=== PATIENT | male | born 1970 | race Hispanic/Latino ===

== ENCOUNTER 2016-12-17 11:43 | Inpatient (IN) | payer OTHER ==
[2016-12-17] MEDS ORDERED: Sodium Chloride 0.9% 1,000 ML IV ONE (12:21)
[2016-12-17] MEDS ORDERED: Pantoprazole 80 MG in Sodium Chloride 0.9% 100 ML IV STA (12:21)
--- NOTE | 2016-12-17 12:21 | C.PDOC ---
History Of Present Illness 46 y/o male presents to ED with c/o rectal bleeding. Patient reports he had a colonoscopy performed recently, which showed large internal hemorrhoids. Patient reports worsening rectal bleeding over last few days with some associated lightheadedness and dizziness. Denies fever, chills, nausea, vomiting. Time Seen by Provider: 12/17/16 12:21 Chief Complaint (Nursing): GI Problem History Per: Patient History/Exam Limitations: no limitations Current Symptoms Are (Timing): Still Present Number Of Bleeding Episodes: Multiple: Pain Scale Rating Of: 0 Quality Of Discomfort: denies: "Pain" Associated Symptoms: Lightheadedness. denies: Nausea, Vomiting, Diarrhea Recent travel outside of the [place]: No Past Medical History Reviewed: Historical Data, Nursing Documentation, Vital Signs Vital Signs: Last Vital Signs Temp 98.6 F 12/17/16 13:20 Pulse 67 12/17/16 13:20 Resp 20 12/17/16 13:20 BP 118/66 12/17/16 13:20 Pulse Ox 97 12/17/16 13:20 - Medical History PMH: Hypercholesterolemia - [facility] Procedures CLOSED ENDOSCOPIC BIOPSY OF LARGE INTESTINE (07/25/14) Family History: States: Unknown Family Hx - Social History Hx Alcohol Use: No Hx Substance Use: No - Immunization History Hx Tetanus Toxoid Vaccination: No Hx Influenza Vaccination: No Hx Pneumococcal Vaccination: No Review Of Systems Constitutional: Negative for: Fever, Chills Cardiovascular: Positive for: Light Headedness. Negative for: Chest Pain, Palpitations Respiratory: Negative for: Shortness of Breath Gastrointestinal: Positive for: Hematochezia. Negative for: Nausea, Vomiting Musculoskeletal: Negative for: Back Pain Skin: Negative for: Rash Neurological: Positive for: Dizziness. Negative for: Weakness Psych: Negative for: Anxiety Physical Exam - Physical Exam Appears: Non-toxic, No Acute Distress Skin: Warm, Dry, Pale Head: Normacephalic Eye(s): bilateral: Normal Inspection, PERRL, EOMI Neck: Supple Chest: Symmetrical Cardiovascular: Rhythm Regular Respiratory: Normal Breath Sounds, No Rales, No Rhonchi, No Wheezing Gastrointestinal/Abdominal: Soft, No Tenderness, No Guarding, No Rebound Rectal: Other (no evidence of active bleeding, (+) bright red blood) Back: No CVA Tenderness Extremity: Normal ROM Extremity: Bilateral: Atraumatic, Normal ROM Pulses: Left Dorsalis Pedis: Normal, Right Dorsalis Pedis: Normal Neurological/Psych: Oriented x3, Normal Speech, Normal Cognition Gait: Steady ED Course And Treatment - Laboratory Results Result Diagrams: 12/17/16 12:42 12/17/16 12:42 O2 Sat by Pulse Oximetry: 100 (RA) Pulse Ox Interpretation: Normal Progress Note: EKG, CxR, labs, IVFs, Zofran, Protonix ordered. Disposition Discussed With Dr.: Abby Garcia Comment: accepted the pt on his service and took over the care at 2:25 PM Doctor Will See Patient In The: Hospital Counseled Patient/Family Regarding: Studies Performed, Diagnosis - Disposition Disposition: HOSPITALIZED Disposition Time: 12:21 Condition: FAIR Forms: [facility] (Slovak) - POA Present On Arrival: None - Clinical Impression Clinical Impression: Rectal bleeding, Severe anemia - Scribe Statement The provider has reviewed the documentation as recorded by the Scribe SM All medical record entries made by the Scribe were at my direction and personally dictated by me. I have reviewed the chart and agree that the record accurately reflects my personal performance of the history, physical exam, medical decision making, and the department course for this patient. I have also personally directed, reviewed, and agree with the discharge instructions and disposition. Decision To Admit - Pt Status Changed To: Hospital Disposition Of: Inpatient - Admit Certification Admit to Inpatient:: After my assessment, the patient will require hospitalization for at least two midnights. This is because of the severity of symptoms shown, intensity of services needed, and/or the medical risk in this patient being treated as an outpatient. - InPatient: Physician Admission Certification: I certify that this patient requires 2 or more midnights of care for the following reason:: After my assessment, the patient will require hospitalization for at least two midnights. This is because of the severity of symptoms shown, intensity of services needed, and/or the medical risk in this patient being treated as an outpatient. - . Bed Request Type: Regular Admitting Physician: Abby Garcia Patient Diagnosis: Rectal bleeding, Severe anemia
[2016-12-17 12:46] LABS: BASO # 0.1 K/uL (0.0-0.2); BASO % 0.8 % (0.0-2.0); EOS # 0.3 K/uL (0.0-0.7); EOS % 4.8 % (0.0-4.0); HEMATOCRIT 25.3 % (35.0-51.0); LYMPH # 1.5 K/uL (1.0-4.3); LYMPH % 21.7 % (20.0-40.0); MEAN CORPUSCULAR HEMOGLOBIN 22.8 pg (27.0-31.0); MEAN CORPUSCULAR HGB CONC 31.3 g/dL (33.0-37.0); MEAN PLATELET VOLUME 7.1 fL (7.2-11.7); MONO # 0.5 K/uL (0.0-0.8); MONO % 7.3 % (0.0-10.0); RED CELL DISTRIBUTION WIDTH 16.1 % (11.5-14.5); WHITE BLOOD COUNT 7.1 K/uL (4.8-10.8)
[2016-12-17 12:54] LABS: CHLORIDE 103 mmol/L (98-107); POTASSIUM 4.4 mmol/L (3.6-5.2); SODIUM 136 mmol/L (132-148)
[2016-12-17] MEDS ORDERED: Sodium Chloride 0.9% 1,000 ML ONE (12:54)
[2016-12-17 12:56] LABS: ALB/GLOB RATIO 1.4 (1.0-2.1); AST/SGOT 33 U/L (17-59); BILIRUBIN,TOTAL 0.5 mg/dL (0.2-1.3); BLOOD UREA NITROGEN 16 mg/dL (9-20); CARBON DIOXIDE 25 mmol/L (22-30); GFR AFRICAN-AMERICAN > 60; TOTAL PROTEIN 6.8 g/dL (6.3-8.3)
[2016-12-17 12:57] LABS: ALKALINE PHOSPHATASE 62 U/L (38-126); ALT/SGPT 57 U/L (21-72); CALCIUM 8.5 mg/dl (8.6-10.4); GLUCOSE,RANDOM 105 mg/dL (75-110)
--- NOTE | 2016-12-17 13:07 | RAD ---
HISTORY: GI Bleeding COMPARISON: None available. TECHNIQUE: Chest, one view. FINDINGS: LUNGS: Mild left basilar atelectasis. No focal consolidation. Please note that chest x-ray has limited sensitivity for the detection of pulmonary masses. PLEURA: No significant pleural effusion identified. No definite pneumothorax . CARDIOVASCULAR: Heart size appears within normal limits. OSSEOUS STRUCTURES: Degenerative changes of the spine. VISUALIZED UPPER ABDOMEN: Mild elevation of the right hemidiaphragm. OTHER FINDINGS: None. IMPRESSION: Mild left basilar atelectasis.
[2016-12-17 14:39] LABS: URINE BILIRUBIN NEGATIVE (NEGATIVE); URINE BLOOD NEGATIVE (NEGATIVE); URINE COLOR Yellow (YELLOW); URINE GLUCOSE (UA) NORMAL (Normal); URINE KETONE NEGATIVE (NEGATIVE); URINE LEUKOCYTE ESTERASE NEG Leu/uL (Negative); URINE PROTEIN NEGATIVE (NEGATIVE); URINE UROBILINOGEN NORMAL mg/dL (0.2-1.0); WBC URINE < 1 /hpf (0-5)
[2016-12-17] MEDS ORDERED: Pneumococcal 23-Valent Vaccine SC ONE (20:36)
[2016-12-17] MEDS ORDERED: Pantoprazole 80 MG in Sodium Chloride 0.9% 100 ML IVP SCH (22:00)
[2016-12-17 22:39] LABS: HEMATOCRIT 25.8 % (35.0-51.0)
[2016-12-18] MEDS: Pantoprazole 80 MG in Sodium Chloride 0.9% 100 ML IVPB SCH ×3 (00:30→22:16)
[2016-12-18] MEDS: Dextrose 5%/0.45% NS 1,000 ML IV SCH ×4 (02:00→22:17)
--- NOTE | 2016-12-18 09:12 | CP.PCM.CON ---
History of Present Illness - History of Present Illness History of Present Illness: I was called 9 pm last night. Consult for R bleeding. Pt reports 2 years of rectal bleeding- episodes of BRBPR on and off. HAs been worse over few weeks- went to [facility] 3 weeks ago, and was discharged from ER. Pt had EGD few months ago- negative. Had 2 colonosocpies- last one was 2 months ago- only internal hemorrhoids seen. Reports sl weakness x 2 weeks. Reports Hb was 9.5. Review of Systems - Constitutional Constitutional: Fatigue, Weakness. absent: Anorexia, Weight Gain, Weight Loss - EENT Eyes: absent: Photophobia - Cardiovascular Cardiovascular: absent: Chest Pain, Dyspnea - Respiratory Respiratory: absent: Hemoptysis, Wheezing - Gastrointestinal Gastrointestinal: Hematochezia. absent: Abdominal Pain, Belching, Constipation , Diarrhea, Hematemesis, Melena, Nausea, Vomiting - Genitourinary Genitourinary: absent: Flank Pain, Hematuria - Musculoskeletal Musculoskeletal: absent: Deformity, Muscle Cramps, Muscle Weakness - Integumentary Integumentary: absent: Rash, Jaundice - Neurological Neurological: absent: Convulsions - Psychiatric Psychiatric: absent: Hallucinations Past Patient History - Past Medical History & Family History Past Medical History?: Yes - Past Social History Smoking Status: Never Smoked - CARDIAC Hx Cardiac Disorders: Yes Hx Hypercholesterolemia: Yes - PULMONARY Hx Respiratory Disorders: No - NEUROLOGICAL Hx Neurological Disorder: No - HEENT Hx HEENT Problems: No - RENAL Hx Chronic Kidney Disease: No - ENDOCRINE/METABOLIC Hx Endocrine Disorders: No - HEMATOLOGICAL/ONCOLOGICAL Hx Blood Disorders: No - INTEGUMENTARY Hx Dermatological Problems: No - MUSCULOSKELETAL/RHEUMATOLOGICAL Hx Falls: No - GASTROINTESTINAL Hx Gastrointestinal Disorders: Yes (BLOODY STOOLS) Hx Hemorrhoids: Yes - GENITOURINARY/GYNECOLOGICAL Hx 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) - PSYCHIATRIC Hx Substance Use: No - SURGICAL HISTORY Hx Surgeries: No - ANESTHESIA Hx Anesthesia: Yes Hx Anesthesia Reactions: No Hx Malignant Hyperthermia: No Has any member of the family had a problem w/ anesthesia?: No Meds Allergies/Adverse Reactions: Allergies Allergy/AdvReac Type Severity Reaction Status Date / Time No Known Allergies Allergy Verified 12/17/16 11:50 - Medications Medications: Current Medications Dextrose/Sodium Chloride (Dextrose 5%/0.45% Ns 1000 Ml) 1,000 mls @ 125 mls/hr IV .Q8H MARY ALICE Last Admin: 12/18/16 05:59 Dose: 125 mls/hr Pantoprazole Sodium 80 mg/ (Sodium Chloride) 100 mls @ 10 mls/hr IVPB .Q10H MARY ALICE PRN Reason: 8 MG/HR Last Admin: 12/18/16 00:30 Dose: 10 mls/hr Pneumococcal Polyvalent Vaccine (Pneumovax 23 Vaccine) 0.5 ml IM .ONCE ONE Stop: 12/19/16 10:01 Physical Exam - Constitutional Appears: Well - Neck Exam Neck exam: Negative for: Tenderness - Respiratory Exam Respiratory Exam: Clear to Auscultation Bilateral - Cardiovascular Exam Cardiovascular Exam: RRR - GI/Abdominal Exam GI & Abdominal Exam: Normal Bowel Sounds, Soft. absent: Distended, Guarding, Tenderness - Rectal Exam Rectal Exam: NORMAL INSPECTION. absent: Black Stool, Bloody Stool, Fecal Impaction Additional comments: g pos - Neurological Exam Neurological exam: Alert, Oriented x3 Results - Vital Signs Recent Vital Signs: Last Vital Signs Temp 98.1 F 12/18/16 08:11 Pulse 62 12/18/16 08:11 Resp 20 12/18/16 08:11 BP 105/58 L 12/18/16 08:11 Pulse Ox 95 12/18/16 08:11 - Labs Result Diagrams: 12/17/16 22:34 12/17/16 12:42 Labs: Laboratory Results - last 24 hr 12/17/16 12/17/16 12/17/16 12:31 12:42 12:42 WBC 7.1 RBC 3.47 L Hgb 7.9 L Hct 25.3 L MCV 73.0 L MCH 22.8 L MCHC 31.3 L RDW 16.1 H Plt Count 369 MPV 7.1 L Neut % (Auto) 65.4 Lymph % (Auto) 21.7 Alger % (Auto) 7.3 Eos % (Auto) 4.8 H Baso % (Auto) 0.8 Neut # 4.6 Lymph # 1.5 Alger # 0.5 Eos # 0.3 Baso # 0.1 PT 11.4 INR 1.0 APTT 26 Sodium Potassium Chloride Carbon Dioxide Anion Gap BUN Creatinine Est GFR ( Amer) Est GFR (Non-Af Amer) Random Glucose Calcium Total Bilirubin AST ALT Alkaline Phosphatase Total Protein Albumin Globulin Albumin/Globulin Ratio Urine Color Urine Clarity Urine pH Ur Specific [place] Urine Protein Urine Glucose (UA) Urine Ketones Urine Blood Urine Nitrate Urine Bilirubin Urine Urobilinogen Ur Leukocyte Esterase Urine WBC (Auto) Stool Occult Blood Negative Blood Type Antibody Screen 12/17/16 12/17/16 12/17/16 12:42 12:42 14:34 WBC RBC Hgb Hct MCV MCH MCHC RDW Plt Count MPV Neut % (Auto) Lymph % (Auto) Alger % (Auto) Eos % (Auto) Baso % (Auto) Neut # Lymph # Alger # Eos # Baso # PT INR APTT Sodium 136 Potassium 4.4 Chloride 103 Carbon Dioxide 25 Anion Gap 13 BUN 16 Creatinine 0.9 Est GFR ( Amer) > 60 Est GFR (Non-Af Amer) > 60 Random Glucose 105 Calcium 8.5 L Total Bilirubin 0.5 AST 33 ALT 57 Alkaline Phosphatase 62 Total Protein 6.8 Albumin 4.0 Globulin 2.9 Albumin/Globulin Ratio 1.4 Urine Color Yellow Urine Clarity Clear Urine pH 5.0 Ur Specific [place] 1.016 Urine Protein Negative Urine Glucose (UA) Normal Urine Ketones Negative Urine Blood Negative Urine Nitrate Negative Urine Bilirubin Negative Urine Urobilinogen Normal Ur Leukocyte Esterase Neg Urine WBC (Auto) < 1 Stool Occult Blood Blood Type O POSITIVE Antibody Screen Negative 12/17/16 12/17/16 15:03 22:34 WBC RBC Hgb 8.3 L Hct 25.8 L MCV MCH MCHC RDW Plt Count MPV Neut % (Auto) Lymph % (Auto) Alger % (Auto) Eos % (Auto) Baso % (Auto) Neut # Lymph # Alger # Eos # Baso # PT INR APTT Sodium Potassium Chloride Carbon Dioxide Anion Gap BUN Creatinine Est GFR ( Amer) Est GFR (Non-Af Amer) Random Glucose Calcium Total Bilirubin AST ALT Alkaline Phosphatase Total Protein Albumin Globulin Albumin/Globulin Ratio Urine Color Urine Clarity Urine pH Ur Specific [place] Urine Protein Urine Glucose (UA) Urine Ketones Urine Blood Urine Nitrate Urine Bilirubin Urine Urobilinogen Ur Leukocyte Esterase Urine WBC (Auto) Stool Occult Blood Blood Type O POSITIVE Antibody Screen Negative Assessment & Plan (1) Internal hemorrhoids Assessment and Plan: Seen at [facility] few months ago. Was NOT felt to be bleeding. Status: Acute (2) Rectal bleeding Assessment and Plan: Red blood. Only int hemorrhoids found on procedures. Consider hemorrhoids, AVM. Consider meckels, small bowel. Pt has appointment for capsule study in 1 week in [facility]. Consoder bleeding scan, meckels scan, capsule study, repeat colonosocpy. Check Hb. Consider surgical consult for hemorrhoids. Status: Acute (3) Severe anemia Assessment and Plan: From rectal bleeding. RED blood. Status: Acute
--- NOTE | 2016-12-18 11:55 | CP.PCM.PN ---
Subjective - Date & Time of Evaluation Date of Evaluation: 12/18/16 Time of Evaluation: 11:57 - Subjective Subjective: Patient seen and examined at bedside this AM; denies any acute complaints but states he is still bleeding into the toilet bowl when he tries to go to the bathroom. No other complaints. Objective - Vital Signs/Intake and Output Vital Signs (last 24 hours): Temp Pulse Resp BP Pulse Ox 98.1 F 62 20 105/58 L 95 12/18/16 08:11 12/18/16 08:11 12/18/16 08:11 12/18/16 08:11 12/18/16 08:11 Intake and Output: 12/18/16 12/18/16 06:59 18:59 Intake Total 1775 Balance 1775 - Medications Medications: Current Medications Heparin Sodium (Porcine) (Heparin Lock Flush) 50 units IVF ONCE MARY ALICE Dextrose/Sodium Chloride (Dextrose 5%/0.45% Ns 1000 Ml) 1,000 mls @ 125 mls/hr IV .Q8H MARY ALICE Last Admin: 12/18/16 05:59 Dose: 125 mls/hr Pantoprazole Sodium 80 mg/ (Sodium Chloride) 100 mls @ 10 mls/hr IVPB .Q10H MARY ALICE PRN Reason: 8 MG/HR Last Admin: 12/18/16 00:30 Dose: 10 mls/hr Pneumococcal Polyvalent Vaccine (Pneumovax 23 Vaccine) 0.5 ml IM .ONCE ONE Stop: 12/19/16 10:01 - Labs Labs: 12/17/16 22:34 12/17/16 12:42 PT 11.4 SECONDS (9.7-12.2) 12/17/16 12:42 INR 1.0 12/17/16 12:42 APTT 26 SECONDS (21-34) 12/17/16 12:42 - Constitutional Appears: Non-toxic - Head Exam Head Exam: ATRAUMATIC - Eye Exam Eye Exam: EOMI, PERRL. absent: Scleral icterus Pupil Exam: PERRL - ENT Exam ENT Exam: Mucous Membranes Moist - Neck Exam Neck Exam: Full ROM. absent: Lymphadenopathy - Respiratory Exam Respiratory Exam: Clear to Ausculation Bilateral, NORMAL BREATHING PATTERN - Cardiovascular Exam Cardiovascular Exam: REGULAR RHYTHM, +S1 - GI/Abdominal Exam GI & Abdominal Exam: Soft, Normal Bowel Sounds - Rectal Exam Rectal Exam: NORMAL INSPECTION (patient does not have blood visible at rectum however does have blood in toilet bowl ) - Extremities Exam Extremities Exam: Full ROM. absent: Calf Tenderness, Pedal Edema - Back Exam Back Exam: NORMAL INSPECTION. absent: CVA tenderness (L), CVA tenderness (R) - Neurological Exam Neurological Exam: Alert, Awake, CN II-XII Intact, Normal Gait, Oriented x3 - Psychiatric Exam Psychiatric exam: Normal Affect - Skin Skin Exam: Warm Assessment and Plan - Assessment and Plan (Free Text) Assessment: 46yo M admitted for GI Bleed GI Bleed; acute -patient had BRBPR for 3x; admits to weakness/ZAMORANO -patient transfused 1 unit PRBC, did not respond appropriately; 7.9 to 8.3; will give 1 more PRBC; BUN wnl -most recent colonscopy showed internal hemorrhoids -bleeding scan done today as per GI; Dr. Gallego; appreciate recs and f/u results -Protonix Drip; NPO; CBC Q12H as per Dr. Garcia; VSS otherwise; patient is ambulating around room without issue Proph -no anticoag for DVT as currently bleeding -protonix drip -NPO until GI clears All management as per Dr. Garcia
[2016-12-18] MEDS: Ferric Sodium Gluconat Complex 62.5 mg/5 ml Vial IVPB SCH (13:45)
[2016-12-18 14:00] LABS: HEMATOCRIT 26.3 % (35.0-51.0)
--- NOTE | 2016-12-18 14:33 | NM ---
PROCEDURE: Nuclear medicine gastrointestinal bleeding scan. HISTORY: rectal bleeding COMPARISON: None available. TECHNIQUE: 4 cc of patient blood was withdrawn and mixed with 21 mCi of technetium ultra tagged. Images of the abdomen and pelvis were obtained in the anterior and posterior projection at 1 min intervals over a period of 45 min. FINDINGS: No abnormal extravasation of tracer was observed throughout the exam to indicate active bleeding within or outside the gastrointestinal tract. Physiologic activity was seen in the heart, liver, spleen and blood vessels. IMPRESSION: No evidence of active gastrointestinal bleeding.
--- NOTE | 2016-12-18 18:39 | HP ---
HISTORY OF PRESENT ILLNESS: A 46-year-old male with complaint of bright red blood per rectum, anemia. The patient came to the hospital for admission. The patient states he had GI bleeding in the past. The patient had a colonoscopy around a few weeks back. He was found to have hemorrhoids. The patient came to the ER, advised admission. PHYSICAL EXAMINATION: GENERAL: The patient is awake, alert and oriented. VITAL SIGNS: Temperature 98, pulse 90. HEENT: Within normal limits. NECK: Supple. CHEST: Symmetrical. HEART: Regular. ABDOMEN: Soft. EXTREMITIES: No edema. LABORATORY DATA: Hemoglobin decreased at 0.6. IMPRESSION: The patient suffers from anemia, gastrointestinal bleeding. The patient on bedrest, supportive care, n.p.o., GI evaluation. Abby Garcia MD
[2016-12-18 21:49] LABS: HEMATOCRIT 25.5 % (35.0-51.0)
[2016-12-19] MEDS: Pantoprazole 80 MG in Sodium Chloride 0.9% 100 ML IVPB SCH ×3 (01:04→15:58)
[2016-12-19] MEDS: Dextrose 5%/0.45% NS 1,000 ML IV SCH ×5 (02:00→18:59)
[2016-12-19 02:31] VITALS: RESP 20
[2016-12-19 07:51] LABS: HEMATOCRIT 29.4 % (35.0-51.0); MEAN CELL VOLUME 74.1 fL (80.0-94.0); MEAN CORPUSCULAR HEMOGLOBIN 23.8 pg (27.0-31.0); MEAN CORPUSCULAR HGB CONC 32.2 g/dL (33.0-37.0); MEAN PLATELET VOLUME 7.2 fL (7.2-11.7); RED CELL DISTRIBUTION WIDTH 16.8 % (11.5-14.5); WHITE BLOOD COUNT 8.2 K/uL (4.8-10.8)
[2016-12-19] MEDS ORDERED: Influenza Vaccine 60 mcg/0.5 mL SYR (4YR UP) IM ONE (10:00)
[2016-12-19] MEDS ORDERED: Pneumococcal 23-Valent Vaccine IM ONE (10:00)
--- NOTE | 2016-12-19 10:37 | CP.PCM.PN ---
Subjective - Date & Time of Evaluation Date of Evaluation: 12/19/16 Time of Evaluation: 09:50 - Subjective Subjective: F/U R bleed. Reports less bleeding. Denies weakness, fever, CP, SOB, abdom pain, ZAMORANO, cough Objective - Vital Signs/Intake and Output Vital Signs (last 24 hours): Temp Pulse Resp BP Pulse Ox 98.2 F 62 20 119/77 95 12/19/16 08:00 12/19/16 08:00 12/19/16 08:00 12/19/16 08:00 12/19/16 08:00 Intake and Output: 12/19/16 12/19/16 06:59 18:59 Intake Total 1480 Balance 1480 - Medications Medications: Current Medications Docusate Sodium (Colace) 100 mg PO DAILY [facility] Last Admin: 12/18/16 14:00 Dose: 100 mg Ferric Sodium Gluconate Complex (Ferrlecit) 125 mg IVPB DAILY MARY ALICE Stop: 12/26/16 13:31 Last Admin: 12/18/16 13:45 Dose: 125 mg Heparin Sodium (Porcine) (Heparin Lock Flush) 50 units IVF ONCE MARY ALICE Dextrose/Sodium Chloride (Dextrose 5%/0.45% Ns 1000 Ml) 1,000 mls @ 125 mls/hr IV .Q8H MARY ALICE Last Admin: 12/19/16 02:24 Dose: 125 mls/hr Pantoprazole Sodium 80 mg/ (Sodium Chloride) 100 mls @ 10 mls/hr IVPB .Q10H MARY ALICE PRN Reason: 8 MG/HR Last Admin: 12/19/16 06:56 Dose: Not Given - Labs Labs: 12/19/16 07:43 12/17/16 12:42 PT 11.4 SECONDS (9.7-12.2) 12/17/16 12:42 INR 1.0 12/17/16 12:42 APTT 26 SECONDS (21-34) 12/17/16 12:42 - Constitutional Appears: Well - Respiratory Exam Respiratory Exam: Clear to Ausculation Bilateral - Cardiovascular Exam Cardiovascular Exam: RRR - GI/Abdominal Exam GI & Abdominal Exam: Soft, Normal Bowel Sounds. absent: Tenderness, Mass - Extremities Exam Extremities Exam: Normal Inspection - Neurological Exam Neurological Exam: Alert, Oriented x3 Assessment and Plan (1) Internal hemorrhoids Assessment & Plan: Not large on colonoscopy nor on my rectal exam yesterday. Status: Acute (2) Rectal bleeding Assessment & Plan: Unclear etiology. EGD done . Colonsocopy done x 2. Bleeding scan is negative. Unclear source of bleeding. Consider hemorrhoids- but were not large on exam. REC; Meckels scan, capsule study., check Hb. Status: Acute (3) Severe anemia Status: Acute
[2016-12-19] MEDS: Ferric Sodium Gluconat Complex 62.5 mg/5 ml Vial IVPB SCH (11:36)
[2016-12-19 14:18] LABS: HEMATOCRIT 29.4 % (35.0-51.0)
[2016-12-20] MEDS: Pantoprazole 80 MG in Sodium Chloride 0.9% 100 ML IVPB SCH ×2 (02:14→20:57)
[2016-12-20] MEDS: Dextrose 5%/0.45% NS 1,000 ML IV SCH ×4 (02:15→20:58)
[2016-12-20 08:19] LABS: HEMATOCRIT 30.2 % (35.0-51.0); MEAN CELL VOLUME 74.4 fL (80.0-94.0); MEAN CORPUSCULAR HEMOGLOBIN 23.8 pg (27.0-31.0); MEAN PLATELET VOLUME 7.6 fL (7.2-11.7); RED CELL DISTRIBUTION WIDTH 17.3 % (11.5-14.5); WHITE BLOOD COUNT 9.9 K/uL (4.8-10.8)
[2016-12-20] MEDS: Ferric Sodium Gluconat Complex 62.5 mg/5 ml Vial IVPB SCH (09:03)
--- NOTE | 2016-12-20 10:27 | CP.PCM.PN ---
Subjective - Date & Time of Evaluation Date of Evaluation: 12/20/16 Time of Evaluation: 10:10 - Subjective Subjective: F/u R bleeding. Reports less bleeding. No BM Denies fever, chills, Sz, CP, SOB, ZAMORANO, cough hematuria, hemoptysis Objective - Vital Signs/Intake and Output Vital Signs (last 24 hours): Temp Pulse Resp BP Pulse Ox 98.1 F 65 20 134/80 96 12/19/16 23:37 12/19/16 23:37 12/19/16 23:37 12/19/16 23:37 12/19/16 23:37 Intake and Output: 12/20/16 12/20/16 06:59 18:59 Intake Total 3000 Balance 3000 - Medications Medications: Current Medications Docusate Sodium (Colace) 100 mg PO DAILY [facility] Last Admin: 12/20/16 09:03 Dose: 100 mg Ferric Sodium Gluconate Complex (Ferrlecit) 125 mg IVPB DAILY MARY ALICE Stop: 12/26/16 13:31 Last Admin: 12/20/16 09:03 Dose: 125 mg Heparin Sodium (Porcine) (Heparin Lock Flush) 50 units IVF ONCE MARY ALICE Dextrose/Sodium Chloride (Dextrose 5%/0.45% Ns 1000 Ml) 1,000 mls @ 125 mls/hr IV .Q8H MARY ALICE Last Admin: 12/20/16 10:00 Dose: 125 mls/hr Pantoprazole Sodium 80 mg/ (Sodium Chloride) 100 mls @ 10 mls/hr IVPB .Q10H [facility] PRN Reason: 8 MG/HR Last Admin: 12/20/16 02:14 Dose: 10 mls/hr - Labs Labs: 12/20/16 08:05 12/17/16 12:42 PT 11.4 SECONDS (9.7-12.2) 12/17/16 12:42 INR 1.0 12/17/16 12:42 APTT 26 SECONDS (21-34) 12/17/16 12:42 - Constitutional Appears: Well - Neck Exam Neck Exam: absent: Tenderness - Respiratory Exam Respiratory Exam: Clear to Ausculation Bilateral - Cardiovascular Exam Cardiovascular Exam: RRR - GI/Abdominal Exam GI & Abdominal Exam: Soft, Normal Bowel Sounds. absent: Tenderness - Neurological Exam Neurological Exam: Alert, Oriented x3 Assessment and Plan (1) Internal hemorrhoids Status: Acute (2) Rectal bleeding Assessment & Plan: Less. Hb- better. Bleeding scan- neg. Consider meckels, sm bowel, hemorrhoids. P- Meckels scan, capsule study. Status: Acute (3) Severe anemia Status: Acute
[2016-12-20 14:14] LABS: HEMATOCRIT 31.2 % (35.0-51.0)
--- NOTE | 2016-12-20 18:25 | CARD ---
APPROVED REPORT EKG Measurement Heart [id number] <Conclusion> Normal sinus rhythm Nonspecific T wave abnormality Abnormal ECG
[2016-12-21] MEDS: Pantoprazole 80 MG in Sodium Chloride 0.9% 100 ML IVPB SCH ×2 (08:17→22:34)
--- NOTE | 2016-12-21 09:30 | CP.PCM.PN ---
Subjective - Date & Time of Evaluation Date of Evaluation: 12/21/16 Time of Evaluation: 09:20 - Subjective Subjective: PGY-[address] Garcia's Service: Pt seen and examined at bedside. Nursing reports no acute events overnight. Pt denies any chest pain, headache, dizziness, abdominal pain or ny hematuria/ hematemesis. However, pt reports BM last night again had blood in the toilet. [facility] Objective - Vital Signs/Intake and Output Vital Signs (last 24 hours): Temp Pulse Resp BP Pulse Ox 99 F 82 20 124/76 95 12/21/16 07:41 12/21/16 07:41 12/21/16 07:41 12/21/16 07:41 12/21/16 07:41 Intake and Output: 12/21/16 12/21/16 06:59 18:59 Intake Total 640 Balance 640 - Medications Medications: Current Medications Docusate Sodium (Colace) 100 mg PO DAILY [facility] Last Admin: 12/20/16 09:03 Dose: 100 mg Ferric Sodium Gluconate Complex (Ferrlecit) 125 mg IVPB DAILY [facility] Stop: 12/26/16 13:31 Last Admin: 12/20/16 09:03 Dose: 125 mg Heparin Sodium (Porcine) (Heparin Lock Flush) 50 units IVF ONCE MARY ALICE Pantoprazole Sodium 80 mg/ (Sodium Chloride) 100 mls @ 10 mls/hr IVPB .Q10H MARY ALICE PRN Reason: 8 MG/HR Last Admin: 12/21/16 08:17 Dose: 10 mls/hr - Labs Labs: 12/20/16 14:11 12/17/16 12:42 PT 11.4 SECONDS (9.7-12.2) 12/17/16 12:42 INR 1.0 12/17/16 12:42 APTT 26 SECONDS (21-34) 12/17/16 12:42 - Additional Findings Additional findings: - Constitutional Appears: Non-toxic - Head Exam Head Exam: ATRAUMATIC - Eye Exam Eye Exam: EOMI, PERRL. absent: Scleral icterus Pupil Exam: PERRL - ENT Exam ENT Exam: Mucous Membranes Moist - Neck Exam Neck Exam: Full ROM. absent: Lymphadenopathy - Respiratory Exam Respiratory Exam: Clear to Ausculation Bilateral, NORMAL BREATHING PATTERN - Cardiovascular Exam Cardiovascular Exam: REGULAR RHYTHM, +S1 - GI/Abdominal Exam GI & Abdominal Exam: Soft, Normal Bowel Sounds, No tenderness - Extremities Exam Extremities Exam: Full ROM. absent: Calf Tenderness, Pedal Edema - Back Exam Back Exam: NORMAL INSPECTION. absent: CVA tenderness (L), CVA tenderness (R) - Neurological Exam Neurological Exam: Alert, Awake, CN II-XII Intact, Normal Gait, Oriented x3 - Psychiatric Exam Psychiatric exam: Normal Affect - Skin Skin Exam: Warm Assessment and Plan - Assessment and Plan (Free Text) Plan: 46yo M admitted for GI Bleed GI Bleed Hgb: 7.9 on admission - 10.1 AM labs patient had BRBPR for 3x; admits to weakness/ZAMORANO patient transfused 2 total units PRBC this admission Dr. Gallego, GI: -most recent colonscopy showed internal hemorrhoids -Soft Diet, VSS otherwise; patient is ambulating around room without issue -f/u Meckels Scan Ferrlecit 125mg IV Daily (through 12/26) Colace 100mg PO Daily Prophylaxis -no anticoag for DVT as currently bleeding -Protonix drip -SCDs Johann Escobar PGY-2 All management as per Dr. Garcia
[2016-12-21] MEDS: Ferric Sodium Gluconat Complex 62.5 mg/5 ml Vial IVPB SCH (10:13)
--- NOTE | 2016-12-21 15:03 | NM ---
PROCEDURE: Meckel's scan HISTORY: GI bleed recurrent COMPARISON: 12/18/2016. GI bleeding scan. TECHNIQUE: 18.6 mCi technetium 99 M labeled pertechnetate administered intravenously. Study performed per institutional protocol. FINDINGS: No evidence of heterotopia gastric mucosal activity. Expected uptake in the stomach identified. IMPRESSION: Negative examination/ unremarkable Meckel's scan.
--- NOTE | 2016-12-21 16:30 | CP.PCM.PN ---
Subjective - Date & Time of Evaluation Date of Evaluation: 12/21/16 Time of Evaluation: 16:27 - Subjective Subjective: CC: Follow up rectal bleed No further bleeding noted. Meckel's scan negative Objective - Vital Signs/Intake and Output Vital Signs (last 24 hours): Temp Pulse Resp BP Pulse Ox 98.7 F 83 20 135/85 96 12/21/16 15:49 12/21/16 15:49 12/21/16 15:49 12/21/16 15:49 12/21/16 15:49 Intake and Output: 12/21/16 12/21/16 06:59 18:59 Intake Total 640 680 Balance 640 680 - Medications Medications: Current Medications Acetaminophen (Tylenol 325mg Tab) 975 mg PO Q6 PRN PRN Reason: Pain, Mild (1-3) Last Admin: 12/21/16 15:53 Dose: 975 mg Docusate Sodium (Colace) 100 mg PO DAILY [facility] Last Admin: 12/21/16 10:11 Dose: Not Given Ferric Sodium Gluconate Complex (Ferrlecit) 125 mg IVPB DAILY [facility] Stop: 12/26/16 13:31 Last Admin: 12/21/16 10:13 Dose: 125 mg Pantoprazole Sodium 80 mg/ (Sodium Chloride) 100 mls @ 10 mls/hr IVPB .Q10H [facility] PRN Reason: 8 MG/HR Last Admin: 12/21/16 08:17 Dose: 10 mls/hr - Labs Labs: 12/20/16 14:11 12/17/16 12:42 PT 11.4 SECONDS (9.7-12.2) 12/17/16 12:42 INR 1.0 12/17/16 12:42 APTT 26 SECONDS (21-34) 12/17/16 12:42 - Constitutional Appears: Well, No Acute Distress - Head Exam Head Exam: NORMOCEPHALIC - Respiratory Exam Respiratory Exam: Clear to Ausculation Bilateral, NORMAL BREATHING PATTERN - Cardiovascular Exam Cardiovascular Exam: REGULAR RHYTHM - GI/Abdominal Exam GI & Abdominal Exam: Soft. absent: Tenderness Assessment and Plan (1) Rectal bleeding Assessment & Plan: Obscure GI bleeding, sometimes dark red, most recently fresh red. Numerous diagnostics do not show a source of bleeding recommend: Stop Protonix drip. Keep outpatient appointment this Wednesday with Dr Taylor for Capsule Endoscopy Status: Acute (2) Severe anemia Assessment & Plan: Improving with Iron replacement Continue Status: Acute
[2016-12-21 16:56] LABS: HEMATOCRIT 32.1 % (35.0-51.0)
[2016-12-22 07:27] LABS: CHLORIDE 102 mmol/L (98-107); SODIUM 135 mmol/L (132-148)
[2016-12-22 07:28] LABS: POTASSIUM 4.3 mmol/L (3.6-5.2)
[2016-12-22 07:29] LABS: GFR AFRICAN-AMERICAN > 60
[2016-12-22 07:30] LABS: ALB/GLOB RATIO 1.3 (1.0-2.1); ALKALINE PHOSPHATASE 64 U/L (38-126); ALT/SGPT 48 U/L (21-72); AST/SGOT 31 U/L (17-59); BILIRUBIN,TOTAL 0.7 mg/dL (0.2-1.3); BLOOD UREA NITROGEN 18 mg/dL (9-20); CALCIUM 8.5 mg/dl (8.6-10.4); CARBON DIOXIDE 23 mmol/L (22-30); GLUCOSE,RANDOM 112 mg/dL (75-110); TOTAL PROTEIN 7.2 g/dL (6.3-8.3)
[2016-12-22 07:31] LABS: MAGNESIUM 1.9 mg/dL (1.6-2.3)
--- NOTE | 2016-12-22 07:38 | CP.PCM.PN ---
Objective - Vital Signs/Intake and Output Vital Signs (last 24 hours): Temp Pulse Resp BP Pulse Ox 98.1 F 77 20 118/79 99 12/21/16 23:49 12/21/16 23:49 12/21/16 23:49 12/21/16 23:49 12/21/16 23:49 Intake and Output: 12/22/16 12/22/16 06:59 18:59 Intake Total 280 Balance 280 - Medications Medications: Current Medications Acetaminophen (Tylenol 325mg Tab) 975 mg PO Q6 PRN PRN Reason: Pain, Mild (1-3) Last Admin: 12/21/16 15:53 Dose: 975 mg Docusate Sodium (Colace) 100 mg PO DAILY [facility] Last Admin: 12/21/16 10:11 Dose: Not Given Ferric Sodium Gluconate Complex (Ferrlecit) 125 mg IVPB DAILY [facility] Stop: 12/26/16 13:31 Last Admin: 12/21/16 10:13 Dose: 125 mg Pantoprazole Sodium 80 mg/ (Sodium Chloride) 100 mls @ 10 mls/hr IVPB .Q10H [facility] PRN Reason: 8 MG/HR Last Admin: 12/21/16 22:34 Dose: 10 mls/hr - Labs Labs: 12/21/16 16:51 12/17/16 12:42 PT 11.4 SECONDS (9.7-12.2) 12/17/16 12:42 INR 1.0 12/17/16 12:42 APTT 26 SECONDS (21-34) 12/17/16 12:42
[2016-12-22 07:45] VITALS: BP 129/81; PULSE 78; TEMP 98.9; O2SAT 98
[2016-12-22] MEDS: Ferric Sodium Gluconat Complex 62.5 mg/5 ml Vial IVPB SCH (10:19)
[2016-12-22] MEDS: Pantoprazole 80 MG in Sodium Chloride 0.9% 100 ML IVPB SCH (13:00)
[2016-12-22] MEDS ORDERED: Influenza Vaccine 60 mcg/0.5 mL SYR (4YR UP) IM ONE (13:55)
== END 2016-12-22 14:53 | disposition home or self-care (01) | DRG 379 ==
LOC: C.ER 11:43 → C.9E 14:21 → C.3T 16:38
PROVIDERS: ADMIT Internal Medicine Pulmonary Disease; ATTEND Internal Medicine Pulmonary Disease
DX: K62.5 Hemorrhage of anus and rectum (principal); D64.9 Anemia, unspecified; K64.8 Other hemorrhoids